=== PATIENT | female | born 1960 | race Caucasian/White ===

== ENCOUNTER → 2017-10-29 11:02 | Outpatient (CLI) | payer OTHER, SELFPAY ==
--- NOTE | 2017-10-29 | DI.MG.S_ITS ---
BILATERAL DIGITAL SCREENING MAMMOGRAM 3D/2D WITH CAD: 10/29/2017 CLINICAL: Routine screening. Comparison is made to exams dated: 11/13/2016 mammogram, 08/30/2015 mammogram, and 08/14/2014 mammogram - [facility]. The tissue of both breasts is extremely dense, which lowers the sensitivity of mammography. Current study was also evaluated with a Computer Aided Detection (CAD) system. No significant masses, calcifications, or other findings are seen in either breast. There has been no significant interval change. IMPRESSION: NEGATIVE There is no mammographic evidence of malignancy. A 1 year screening mammogram is recommended. This exam was interpreted at Station ID: [id number]. NOTE: For mammograms, a report in lay terms will be sent to the patient. Approximately 15% of breast malignancies will not be visualized mammographically. In the management of a palpable breast mass, a negative mammogram must not discourage biopsy of a clinically suspicious lesion. Electronically Signed By: Rosa [email or web address]:10/29/2017 11:48:19 copy to: ASHANTI MCFARLANE letter sent: Normal Exam ACR BI-RADS Category 1: Negative 3341F
== END ==
PROVIDERS: PCP Family Medicine; Visit Provider Nurse Practitioner Family
DX: Z12.31 Encounter for screening mammogram for malignant neoplasm of breast (principal)
CPT/HCPCS: 77063; 77067

== ENCOUNTER → 2019-04-28 11:00 | Outpatient (CLI) | payer OTHER, SELFPAY ==
--- NOTE | 2019-04-28 11:04 | DI.MG.S_ITS ---
BILATERAL DIGITAL SCREENING MAMMOGRAM 3D/2D WITH CAD: 04/28/2019 CLINICAL: Routine screening. Comparison is made to exams dated: 10/29/2017 mammogram, 11/13/2016 mammogram, and 08/30/2015 mammogram - [facility]. The tissue of both breasts is extremely dense, which lowers the sensitivity of mammography. Current study was also evaluated with a Computer Aided Detection (CAD) system. There are benign calcifications in both breasts. No significant masses, calcifications, or other findings are seen in either breast. There has been no significant interval change. IMPRESSION: There is no mammographic evidence of malignancy. A 1 year screening mammogram is recommended. This exam was interpreted at Station ID: [id number]. NOTE: For mammograms, a report in lay terms will be sent to the patient. Approximately 15% of breast malignancies will not be visualized mammographically. In the management of a palpable breast mass, a negative mammogram must not discourage biopsy of a clinically suspicious lesion. Electronically Signed By: Jack oakes/[email or web address]:04/28/2019 14:17:35 copy to: ASHANTI MCFARLANE letter sent: Normal Exam ACR BI-RADS Category 2: Benign Finding(s) 3342F
== END ==
PROVIDERS: PCP Nurse Practitioner Family; Referring Provider Family Medicine; Visit Provider Family Medicine
DX: Z12.31 Encounter for screening mammogram for malignant neoplasm of breast (principal)
CPT/HCPCS: 77063; 77067

== ENCOUNTER → 2020-04-12 12:15 | Outpatient (CLI) | payer OTHER, SELFPAY ==
--- NOTE | 2020-04-12 12:37 | DI.CT.S_ITS ---
PROCEDURE: CT LE RT WO CON INDICATIONS: Post-traumatic osteoarthritis, right ankle and foot TECHNIQUE: Noncontrast 1-1.5 mm axial sections acquired from above the tibiotalar joint to the bottom of the calcaneus, with coronal and sagittal reformats. COMPARISON: None. FINDINGS: Image quality: Excellent. Bones: Postsurgical changes related to presume 1st metatarsal osteotomy and screw fixation. Hardware appears grossly intact. Moderate to severe 1st MTP joint degeneration. Severe tibiotalar degenerative joint disease. There is diffuse hindfoot and midfoot degenerative sclerosis and spurring. Diffuse osteopenia. Diffuse interphalangeal joint degeneration. Soft tissues: The visualized tendons and muscles are unremarkable except for mild diffuse muscle atrophy. IMPRESSION: Diffuse degenerative changes as above and osteopenia. Severe tibiotalar joint degeneration with [id number] appearance, subchondral sclerosis and spurring. Dictated by: Yury Taylor M.D. on 04/12/2020 at 16:07 Approved by: Yury Taylor M.D. on 04/12/2020 at 16:14
== END ==
PROVIDERS: PCP Nurse Practitioner Family; Referring Provider Orthopaedic Surgery Foot and Ankle Surgery; Visit Provider Orthopaedic Surgery Foot and Ankle Surgery
DX: M19.171 Post-traumatic osteoarthritis, right ankle and foot (principal)
CPT/HCPCS: 73700

== ENCOUNTER 2020-05-22 09:04 | Emergency (ER) | payer OTHER, SELFPAY ==
[2020-05-22 09:05] VITALS: BP 144/93; PULSE 94; RESP 16; TEMP 37.1; O2SAT 100; BMI 20.1
--- NOTE | 2020-05-22 09:21 | ED_ITS ---
HPI - Extremity Problem General Chief complaint: Extremity Problem,Nontraumatic Stated complaint: right side hip pain down leg Time Seen by Provider: 05/22/20 09:07 Source: patient Mode of arrival: Ambulatory Limitations: no limitations History of Present Illness HPI Narrative: Patient is a 60-year-old female who presents with left hip pain ongoing for a number of weeks. She was found to have are right S she received injections for the arthritis in her left hip her last injection was on 05/12/2020 by Orthopedics. She says since then it really has gotten much worse. She was on a short course of prednisone which she says has not really helped she is taking meloxicam daily along with tramadol she says it is painful to walk. She denies any fever chills no weakness numbness or tingling. MD Complaint: extremity pain Onset (ago): week(s) Pain Consistency: constant Location: left Quality: aching and sharp Radiation: distal Relieving factors: nothing Related Data Home Medications Medication Instructions Recorded Confirmed pantoprazole 40 mg PO BID #0 06/27/16 Previous Rx's Medication Instructions Recorded ondansetron HCl [Zofran] 4 mg PO TID #15 tab 04/11/16 diclofenac sodium [Voltaren] 1 % TOPICAL TID #100 gm 06/27/16 tramadol 50 mg PO BID #120 tab 06/27/16 alprazolam 0.25 mg OR BID #10 tab 07/10/16 hydrocodone-acetaminophen 1 tab PO Q6H PRN #10 tab 05/22/20 Allergies Allergy/AdvReac Type Severity Reaction Status Date / Time No Known Drug Allergies Allergy Verified 05/22/20 09:10 Review of Systems Review of Systems Narrative: GENERAL: Denies chills, fatigue, malaise, fever, sweats, travel HEENT: Denies sinus pain, ear pain, sore throat, difficulty swallowing, neck pain RESPIRATORY: Denies dyspnea, cough, wheezing, hemoptysis, sputum. CARDIOVASCULAR: Denies chest pain, palpitations, orthopnea, edema GASTROINTESTINAL: Denies nausea, vomiting, abdominal pain, diarrhea, constipation, melena. : Denies dysuria, frequency, incontinence, hematuria, urinary retention, flank pain. MUSCULOSKELETAL: See HPI SKIN: No rash, no erythema, no pruritus NEUROLOGIC: Denies weakness, dizziness, headache, numbness, change in speech, confusion PSYCHIATRIC: No concerning psychosocial issues. 12 point review of systems is negative except for those stated above and HPI Patient History Social History Smoking Status: Unknown if ever smoked Smoking Status: Unknown if ever smoked alcohol intake frequency: holidays/special occasions only Substance Use Type: does not use Exam Initial Vital Signs Initial Vital Signs: Vital Signs Temperature 98.7 F 05/22/20 09:05 Pulse Rate 94 H 05/22/20 09:05 Respiratory Rate 16 05/22/20 09:05 Blood Pressure 144/93 H 05/22/20 09:05 Pulse Oximetry 100 05/22/20 09:05 GENERAL: Alert 60-year-old female and in [no acute] distress. HEENT: Head atraumatic,EOMI, pupils reactive, CARDIOVASCULAR: Regular rate and rhythm without murmurs, rubs or gallops. RESPIRATORY: Breath sounds equal bilaterally, no wheezes rales or rhonchi. EXTREMITIES: Normal range of motion, no clubbing or edema. Neurovascularly intact Right hip minimal pain with internal external rotation there is no erythema mild tenderness. Pelvis is stable NEUROLOGICAL: Alert and oriented x4.Normal gait and speech. SKIN: Warm, dry, no laceration, no petechiae, no rashes or lesions. Course Orders Ordered: ED Orders 05/22/20 09:19 CT pelvis wo con Stat Discontinued Medications Morphine Sulfate (Morphine 4 Mg/Ml Inj) 4 mg IM NOW ONE Stop: 05/22/20 09:20 Last Admin: 05/22/20 09:25 Dose: 4 mg Documented by: SUZANNA Ondansetron HCl (Ondansetron 4 Mg Odt) 4 mg SL NOW ONE Stop: 05/22/20 09:20 Last Admin: 05/22/20 09:25 Dose: 4 mg Documented by: SUZANNA Vital Signs Vital signs: Vital Signs - 8 hr 05/22/20 09:05 05/22/20 10:10 Temperature 98.7 F Pulse Rate 94 H 84 Respiratory Rate 16 16 Blood Pressure 144/93 H 138/88 Pulse Oximetry 100 98 MDM - Extremity (Nontraumatic) Imaging Data CT scan - abdomen/pelvis: Radiologist's Impression: PROCEDURE: CT PEL WO CON INDICATIONS: right hip pain TECHNIQUE: Noncontrast 3 mm axial sections acquired through the bony pelvis, with coronal and sagittal reformatting. COMPARISON: None. FINDINGS: Image quality: Excellent. Bones: No acute fracture or traumatic malalignment. Minimal collar osteophytes of the acetabulum bilaterally. Degenerative changes seen in the partially visualized lower lumbar spine. Sacroiliac joints appear preserved. Soft tissues: Soft tissues about the right hip are unremarkable. There is moderate stool burden. There are calcified fibroids in the uterus. The bladder is distended. IMPRESSION: No acute bony abnormality of the right hip. Minimal bilateral hip degenerative changes. Dictated by: Michael Day M.D. on 05/22/2020 at 8:52 MDM Narrative Medical decision making narrative: At this time CT is negative. It is non erythematous she has no fever chills it has been ongoing for number of weeks. At this time I see no indication for further workup. Recommend outpatient follow-up with Orthopedics. Will change pain control medication to [place] instead of tramadol. Discharge Plan Departure Patient Disposition: Home Clinical Impression: Osteoarthritis of right hip Qualifiers: Osteoarthritis type: primary Qualified Code(s): M16.11 - Unilateral primary osteoarthritis, right hip Activity Restrictions/Additional Instructions: *You have been diagnosed with arthritis right hip *What to do: Increasing pain numbness tingling or weakness *Continue to take medications as directed [place] 1 tablet every 6 hours if needed for severe pain STOP TAKING TRAMADOL *Follow up with your primary care provider in 2-3 days *Return to ER if you should have weakness fever chills numbness tingling or any new, worsening or concerning symptoms Prescriptions: New hydrocodone-acetaminophen 5-325 mg tablet 1 tab PO Q6H PRN (Reason: pain) Qty: 10 RF: 0 No Action ondansetron HCl [Zofran] 4 MG tablet 4 mg PO TID Qty: 15 RF: 0 pantoprazole 40 MG tablet,delayed release (DR/EC) 40 mg PO BID Qty: 0 RF: 0 diclofenac sodium [Voltaren] 1 % gel 1 % Topical TID Qty: 100 RF: 1 tramadol 50 MG tablet 50 mg PO BID Qty: 120 RF: 3 alprazolam 0.25 MG tablet 0.25 mg OR BID Qty: 10 RF: 0 Referrals: Bisi Fox ARNP [Primary Care Provider] -
[2020-05-22] MEDS: ONDANSETRON 4 MG ODT SL (09:25)
[2020-05-22] MEDS: MORPHINE 4 MG/ML INJ IM (09:25)
[2020-05-22 10:10] VITALS: BP 138/88; PULSE 84; RESP 16; O2SAT 98
== END 2020-05-22 10:10 | disposition home or self-care (01) ==
PROVIDERS: Emergency Provider Emergency Medicine; PCP Nurse Practitioner Family
DX: M16.11 Unilateral primary osteoarthritis, right hip (principal)
CPT/HCPCS: 72192; 96372; 99284; J2270

== ENCOUNTER → 2020-06-07 12:49 | Outpatient (CLI) | payer OTHER, SELFPAY ==
--- NOTE | 2020-06-07 12:51 | DI.MRI.S_ITS ---
PROCEDURE: MR LUMBAR SPINE WO CON INDICATIONS: Spinal stenosis, lumbar region with neurogenic cla TECHNIQUE: Noncontrast sagittal T1 spin echo and T2 fast echo, sagittal STIR, axial T1 and T2 fast spin echo through the lumbar spine. In cases with scoliosis, additional coronal T2 fast spin echo may be performed. COMPARISON: [facility] [place], CR, XR LUMBAR SPINE WITH OLBIQUES PLUS FLEXION EXTENSION, 03/29/2020, 8:51. FINDINGS: Image quality: Excellent. Alignment and Curvature: 5 lumbar type vertebral bodies are present by plain film. Transitional element at S1. The numbering for the current report will be as denoted on the montage panel. Mild grade 1 anterolisthesis of L4 on L5 is present. Bone Marrow: Marrow is of normal overall signal. No acute vertebral body compression fractures. Mild reactive signal within the endplates adjacent to the L4-L5 and L5-S1 intervertebral discs. Spinal Cord: Conus medullaris terminates at the mid L2 level. Visualized cord demonstrates normal signal and size. Paraspinous Soft Tissues: No paravertebral masses. T12-L1: Normal appearance. L1-L2: Normal appearance. L2-L3: Mild disc height loss and desiccation. Mild diffuse disc bulge. Mild facet and ligamentum flavum hypertrophy. Mild canal stenosis. Mild bilateral foraminal stenosis. L3-L4: Moderate disc height loss and desiccation. Mild diffuse disc bulge. Mild facet and ligamentum flavum hypertrophy. Mild canal stenosis. Mild bilateral foraminal stenosis. L4-L5: Moderate disc height loss and desiccation. Mild diffuse disc bulge. Mild facet and ligamentum flavum hypertrophy. Mild canal stenosis. Mild bilateral foraminal stenosis. L5-S1: Moderate disc height loss and desiccation. Mild diffuse disc bulge with superimposed right far lateral broad-based protrusion. Mild facet and ligamentum flavum hypertrophy. Mild canal stenosis. Severe right and moderate left foraminal stenosis. Right L5 nerve root compression. IMPRESSION: 1. Multilevel degenerative disc and facet disease, as well as ligamentum flavum hypertrophy and epidural lipomatosis. 2. Mild multilevel canal stenosis. 3. Multilevel foraminal stenoses, worst at L5-S1 where there is associated intraforaminal nerve root compression. Recommend correlation with clinical symptoms to ascertain relevance of this finding. 4. Transitional anatomy at the lumbosacral junction as described above. Recommend correlation with the montage panel of the current examination, as well as plain films, for numbering purposes, prior to any lumbar spinal intervention. Dictated by: Munir Byrnes M.D. on 06/07/2020 at 16:55 Approved by: Munir Byrnes M.D. on 06/07/2020 at 16:58
== END ==
PROVIDERS: PCP Nurse Practitioner Family; Referring Provider Physical Medicine & Rehabilitation Pain Medicine; Visit Provider Physical Medicine & Rehabilitation Pain Medicine
DX: M48.062 Spinal stenosis, lumbar region with neurogenic claudication (principal); M48.07 Spinal stenosis, lumbosacral region; M51.36 Other intervertebral disc degeneration, lumbar region; M51.37 Other intervertebral disc degeneration, lumbosacral region; E88.2 Lipomatosis, not elsewhere classified
CPT/HCPCS: 72148

== ENCOUNTER → 2020-11-16 11:08 | Outpatient (CLI) | payer OTHER, SELFPAY ==
[2020-11-16 12:43] LABS: COVID19 -Nasal RAPID Negative (Negative)
== END ==
PROVIDERS: PCP Nurse Practitioner Family; Visit Provider Physician Assistant
DX: Z20.822 Contact with and (suspected) exposure to COVID-19 (principal)
CPT/HCPCS: 87635

== ENCOUNTER 2020-11-19 06:14 | Day surgery (SDC) | payer OTHER, SELFPAY ==
[2020-11-15 10:09] VITALS: BMI 20.5
[2020-11-19] VITALS (15 sets, daily range): BP systolic 96–119; BP diastolic 55–85; PULSE 57–98; RESP 12–20; TEMP 36.6–37.1; O2SAT 97–100; BMI 17.9
--- NOTE | 2020-11-19 | DI.RAD.S_ITS ---
PROCEDURE: XR ANKLE RT MIN 3V INDICATIONS: RT ANKLE SURGERY TECHNIQUE: 3 views of the ankle were acquired. COMPARISON: None. FINDINGS: Bones: Intraoperative images demonstrate postsurgical changes compatible with right tibiotalar arthroplasty. Orthopedic hardware in expected position. IMPRESSION: Expected postsurgical change for right tibiotalar joint arthroplasty. Dictated by: Sabine Laurent MD, PhD on 11/19/2020 at 15:05 Approved by: Sabine Laurent MD, PhD on 11/19/2020 at 15:06
[2020-11-19] MEDS: LACTATED RINGERS 1,000 ML 42 ML IV ×2 (07:23→09:19)
[2020-11-19] MEDS: GABAPENTIN 300 MG CAPSULE PO ×3 (07:25→20:54)
[2020-11-19] MEDS: ACETAMINOPHEN 325 MG TABLET 975 MG PO ×3 (07:25→20:54)
[2020-11-19] MEDS: SCOPOLAMINE 1 PATCH TOP (07:27)
[2020-11-19] MEDS: VANCOMYCIN 1,000 MG/200 ML PIGGYBACK 200 MG IV (07:27)
--- NOTE | 2020-11-19 07:28 | PM.PREOP ---
Pre-operative Note COVID-19 COVID-19 status: Negative Result date/Date tested (Pos, Neg/Pending): 11/16/20 Interval Note History & Physical reviewed/Exam performed by Physician: Yes Changes to H&P: No
[2020-11-19] MEDS: CEFAZOLIN 1 GM VIAL 2 GM IV ×2 (08:07→15:08)
--- NOTE | 2020-11-19 08:20 | PM.PROC.1 ---
Procedures Date/Time Date of procedure: 11/19/20 Time of procedure: 07:51 Nerve Block Time out performed: Yes Local anesthetic used: bupivacaine 0.25% Location of anesthetic used: RIGHT Amount of anesthesia used (mL): 15 Nerve blocks: femoral (adductor canal) Procedure successful: Yes Patient tolerated procedure: well and no complications Complications: none Additional comments: Adductor canal nerve block performed for post-op pain control at surgeon request. Patient was positioned with IV, O2, monitors and rescue meds available. Prepped and timeout performed. Target identified with continuous ultrasound guidance. 15mL of bupivicaine 0.25% was injected perineurally with intermittent aspiration and injection. No blood, no paresthesias, no acute complications. Ultrasound pic attained.
--- NOTE | 2020-11-19 08:22 | PM.PROC.1 ---
Procedures Date/Time Date of procedure: 11/19/20 Time of procedure: 07:55 Nerve Block Time out performed: Yes Local anesthetic used: bupivacaine 0.25% Location of anesthetic used: RIGHT Amount of anesthesia used (mL): 15 Nerve blocks: peroneal (popliteal) Procedure successful: Yes Patient tolerated procedure: well and no complications Complications: none Additional comments: Popliteal nerve block performed for post-op pain control at surgeon request. Patient was positioned with IV, O2, monitors and rescue meds available. Prepped and timeout performed. Target identified with continuous ultrasound guidance. 15mL of bupivicaine 0.25% was injected perineurally with intermittent aspiration and injection. No blood, no paresthesias, no acute complications. Ultrasound pic attained.
--- NOTE | 2020-11-19 08:25 | SUR.PREOP ---
Block start time [0747] . time out -0747; Monitoring initiated and maintained throughout procedure. Oxygen and medications given per anesthesiologist. Patient remained stable throughout procedure, no adverse reactions noted. Block end time [0755].
--- NOTE | 2020-11-19 08:29 | SUR.PREOP ---
Block start time [] . Monitoring initiated and maintained throughout procedure. Oxygen and medications given per anesthesiologist instructions. Patient remained stable throughout procedure, no adverse reactions noted. Block end time [].
--- NOTE | 2020-11-19 08:46 | SUR.OPER ---
Supine on padded OR bed, head on pillow, arms secured on padded arm boards at <90 degrees abduction, gel pads placed under bilateral arms, legs uncrossed, padded bed extension placed for left leg, slightly abducted, gel pad under left leg, safety belt at lower torso, blanket bump under right hip, tape over blanket over left lower leg, right leg in control of the surgeon. Gel pad placed between patient left posterior thigh and urinary catheter tubing. Difficult urinary catheter placement, slightly reddened near urethra/vagina area.
[2020-11-19] MEDS: EPINEPHrine 1 MG/ML 0.15 MG SUBCUT (09:07)
[2020-11-19] MEDS: BUPIVACAINE 0.25% (PF) VIAL 30 ML INJ (09:09)
--- NOTE | 2020-11-19 13:51 | P.OP_ITS ---
Operative Date/Time/Diagnoses Date of procedure: 11/19/20 Time of procedure: 08:45 Pre-op diagnosis: Posttraumatic arthritis right ankle M19.171 Post-op diagnosis: same Procedure & Clinicians Procedure: Total ankle arthroplasty, right CPT code 01461 Same procedure as scheduled: Yes Indications: The patient is a 60-year-old female with a history of right posttraumatic ankle arthritis. She has a remote history of a tibia shaft fracture treated non operatively. She does have some mild degenerative changes in her subtalar joint and midfoot but has end-stage posttraumatic ankle arthritis. She has failed conservative treatment with injections, bracing, anti-inflammatories and activity modifications. She has been indicated for a total ankle arthroplasty to preserve range of motion and function and a protect adjacent joints. The patient desires a joint sparing procedure the risks and benefits and alternatives to procedure were discussed with the patient in detail including but not limited to infection, nonunion, malunion, intraoperative fracture, wound healing problems, hardware irritation, need for additional procedures, persistent pain, DVT, PE, cardiac and pulmonary complications including stroke, paralysis, and risk of amputation. The possible need for additional operative procedures to balance the ankle were also discussed. The patient understands and agrees with the plan. We discussed the patient will be nonweightbearing minimum of 2 weeks and up to 6 weeks postoperatively. Sutures will remain in place 2-4 weeks. Formal physical therapy will start sometime around 6 weeks postoperatively we discussed at no time during physical therapy will the patient be allowed to do any single leg balance on a balance board or unstable surfaces the due to the increase for stress fracture and implant failure. Patient has no history of DVT or pulmonary embolism and will utilize aspirin 325 mg starting postop day 1 for DVT prophylaxis. Will having some ice and a Ancef as a preoperative antibiotic. She will use antibiotic prophylaxis for dental procedures for at least 2 years postoperatively. The patient understands and agrees with the plan and Informed consent was signed in the office. During the Operation, the services of a physician surgical supply assistant were medically indicated and necessary to provide the exposure of the operative site for the surgical procedure and to maintain the limb in a proper position to carry out the operation safely and efficiently. Without a qualified trust operations assistant being present this would extended the operative procedure and made the procedure technically more difficult to perform. Surgeon: Aileen Campbell Awake Overnight Monitor: Radha Cage Anesthesia Type: General, Peripheral nerve block and Local (10 cc 0.25% Marcaine subcutaneous) Operative Notes Findings: Right tibiotalar arthritis with eburnated bone and significant anterior distal tibial and talar osteophytes. There was a known medial anterior distal tibial cystic lesion just above the level of the physeal scar -this was addressed with the planned stemmed implant-noted intraop with the use of reaming in the distal tibia through this section remainder of the bone quality was good. There was no residual Ligament laxity. After implant placement the range of motion was checked and it was acceptable. Therefore it was determined no need for Achilles lengthening. Closure Type: primary Specimen(s): none sent Prosthetic devices, grafts, tissues, transplants, or devices: Herr inbone tibial implant: Tibial top stem 12 mm, tibial mid stem 14 mm, tibial mid stem 14 mm, tibial base stem 16 mm Herr Inbone tibial tray right size 2 long Herr infinity adaptis talar dome flat cut size 1 Inbone poly insert: Ultra high molecular weight polyethylene size 1+, height 6 mm Estimated Blood Loss (mL): 30 Blood products transfused: none Tourniquet time (min): 139 Procedure in detail: The patient was seen in the preoperative area the site of surgery was marked informed consent confirmed. Final questions were answered. The patient was also seen by the anesthesiologist and a peripheral nerve block was placed for postoperative pain control. The patient was brought back to the operating room by the anesthesia team positioned supine on the operative table. All bony prominences were well padded. A well-padded thigh tourniquet was placed. The ipsilateral thigh bump was placed. An extra arm table was placed on the contralateral side to allow abduction of the contralateral lower extremity to provide room for the jig. Additional several intervals at the end of the bed were saved for room for the frame jig. General anesthesia was administered. A Ramos catheter was placed for the duration of the procedure. This was removed at the end of the procedure. The right lower extremities prepped and draped in the standard sterile fashion with a prescub then standard prep. The right lower extremity was then draped in the standard sterile fashion. Formal time-out procedure was performed confirming the patient's side and site of surgery administration of appropriate preoperative antibiotics which in this case were vancomycin and 2 g of Ancef. All were in agreement. Implants were in the room and available. Attention was then turned to the right lower extremity an Esmarch bandage was used for exsanguination the tourniquet was elevated to 250 mmHg and stayed there for 139 minutes. This was then taken down for 20 minutes summary elevated for a brief of 15 minute were. A to finish the procedure. Standard anterior approach to the ankle was drawn out on the leg approximately 12 cm incision was taken about 1 cm lateral to the tibial crest and extended longitudinally bisecting the tibiotalar joint extending to the talonavicular joint. This was taken down through the skin and subcutaneous tissues care was taken to isolate and protect the superficial peroneal nerve branch. Next the extensor retinaculum was opened and tagged with an 0 Vicryl for later repair. The EHL tendon sheath was opened and the EHL and neurovascular bundle were retracted laterally and the tibialis anterior was capped into its sheath and retracted medially. This brought us down directly on the anterior tibia. Dissection was taken all the way to the talonavicular joint to expose the talus. The capsule was divided and retracted. The joint demonstrated end-stage tibiotalar arthritis with large anterior distal tibial spurs and a medial large talar spur. The Bovie cautery and elevators were used to remove the periosteum along the anterior tibia and expose the joint. Gelpi and Weitlaner retractors were used to protect the EHL and neurovascular bundle. The talus was mobilized. There no significant joint contractures. There was some asymmetric wear with minimal talar tilt narrowing on the lateral side and this was corrected by placing a small osteotome at the lateral aspect of the talar dome. This was kept in this position to guide our drilling. Leg was then placed into the inbone frame: In the standard adjustments made 1st confirming that the heel was flat down to the foot plane to the ankle was at 90? the heel cups were then secured the AP guide was placed in the slot in the C-arm brought in once alignment of the guide edgar was obtained the ankle was rotated into a mortise view and then the heel was pinned in place and the forefoot holders were secured at this point the toes were secured with Coban and the calf was secured with Coban. C-arm was taken to a lateral position and the medial lateral positioners were adjusted and the calf height and Achilles rest adjusted as needed for appropriate alignment. Then we returned to the AP view. Once appropriate alignment was obtained the trocar and cannula for the intramedullary drilling was placed in to the foot and a lizzeth placed on the bottom of the foot for this. Bottom of the foot incision was made and then blunt dissection carried down to bone. The trocar was then replaced and the 6 mm drill was placed up against the calcaneus. Under fluoroscopic guidance great care was taken with a Manning drill technique through the calcaneus and talus and then into the tibia. Was noted that there was some medial skive on the drilling this was corrected during our reaming using the U rotation adjustments. Drill was advanced about 7 cm into the tibia then attention was turned to sizing with the cutting guides cutting block was placed in place trialing a 3 this was obviously too large and was exchanged for a 2 which had a good fit. This was adjusted using the dials distal proximal and medial lateral to aligned at the joint line and to make sure that we were not cutting into the fibula and taking too much medial malleolus. All the knobs were tightened. We went into the lateral position to check the talar cut with the saw blade this was appropriate. The guide block was pinned bicortically. The gutter pins were placed. The anti rotation block was placed in. The 6 mm peg drill was then backed out into the talus. And the tibial notch was completed bicortically the anti rotation notch was removed and then the saw cuts were made at the tibia and talus. Cut ting block was then removed and the distal tibia resection was removed followed by the talar resection. Care was taken removing the distal tibia resection piece to only pull anterior to posterior to avoid any pressure on the malleoli. At this point reaming was completed we did use adjustment of the U bracket for a center center reaming. We started with a 12 mm Reamer then irrigated and then reamed 14 just distally for a 2 mm Press-Fit and selected a top stem of 12 2 mid stems of 14 and a base stem of 16 for this patient. This was felt to appropriately span her area of anterior distal tibia cyst and have a good fit for her bone quality. Next the Reamer was removed and the wound was irrigated. The tibial tray size was measured and a 2 long was selected. Then the tibial stems were opened and the tibial stem was implanted in the standard fashion. This was confirmed appropriate alignment and bony contact on AP and lateral imaging. At this point the foot was taken out of the foot dinh. Gutters were checked and were clear. Talar dome trial was placed 2 was trialed this was overhanging so a 1 was selected. One had a good fit without overhang this was selected and then pinned in place. The adaptis talar implant guide was then pinned in place and the 3 pegs drilled. The guide was then removed. The bone was irrigated. Left over bone from the tibial resection was rongeur and a small pleases and then packed into the intramedullary defect. The talar implant was implanted in the standard fashion. Good bony contact was noted on AP and lateral views. A trial poly 6 mm was placed. Radiographic and clinical alignment demonstrated no evidence of gutter impingement. Range of motion was checked clinically and fluoroscopically on AP and lateral views in dorsiflexion plantar flexion without appropriate range of motion and no Achilles tendon lengthening was indicated. Next day final poly 6 mm was selected this is a 1+. This was placed in the standard fashion. Final fluoroscopic x-rays were obtained demonstrating appropriate range of motion in implant placement and alignment. The tourniquet was released the wound was irrigated. Hemostasis was achieved. The wound was closed in layers with 0 Vicryl in the deep capsule. 2-0 PDS was used to close the retinaculum providing an excellent tight closure. 4-0 Monocryl was placed subcutaneous followed by 3-0 nylon. I did put some additional Dermabond on for a complete watertight seal. 3-0 nylon was used to close the foot incision. 10 cc of 0.25% Marcaine was used as a local anesthetic after the incision was closed. Well-padded dressing was placed with Xeroform, 4 x 4 gauze, Webril, bulky Nova cotton, posterior and U splint was applied. Drapes removed the patient was woken from anesthesia and taken to PACU in good condition. All counts were correct. There no immediate complications from this procedure. Complications: none Post-operative Condition: stable Disposition: PACU Plan for aftercare: Nonweightbearing right lower extremity. Strict elevation above the heart level for the 1st 2 weeks after surgery. Patient will be nonweightbearing until follow-up. Sutures will remain in place minimal of 2 weeks. Will start aspirin 325 mg daily for for 6 weeks for DVT prophylaxis starting on postop day 1. Will use SCDs while in the hospital. Will get 2 doses of antibiotics postoperatively while in the hospital. Plan discharge home tomorrow.
[2020-11-19] MEDS: KETOROLAC 30 MG/ML VIAL 15 MG IV ×2 (13:56→19:02)
[2020-11-19] MEDS: LACTATED RINGERS 1,000 ML 84 ML IV (13:59)
--- NOTE | 2020-11-19 15:05 | PT-IP ANOTE ---
Physical therapy order received and chart reviewed. Spoke to her nurse and pt is not ready to participate in mobility yet today. Will continue to follow and start PT when pt ready to increase her activity level.
[2020-11-19] MEDS: OXYCODONE IR 5 MG TABLET PO (15:17)
[2020-11-19 16:15] LABS: Estimated Glomerular Filt Rate > 60.0 mL/min (>60)
[2020-11-19] MEDS: PANTOPRAZOLE DR 40 MG TABLET PO (20:54)
[2020-11-19] MEDS: DOCUSATE 100 MG CAPSULE PO (20:54)
[2020-11-20] VITALS: BP 102/64; PULSE 86; RESP 16; TEMP 36.3; O2SAT 100
[2020-11-20] MEDS: CEFAZOLIN 1 GM VIAL 2 GM IV (00:41)
[2020-11-20] MEDS: KETOROLAC 30 MG/ML VIAL 15 MG IV ×2 (01:19→07:16)
[2020-11-20] MEDS: LACTATED RINGERS 1,000 ML 84 ML IV (01:39)
[2020-11-20 04:00] VITALS: BP 119/50; PULSE 61; RESP 17; TEMP 36.9; O2SAT 100
[2020-11-20] MEDS: GABAPENTIN 300 MG CAPSULE PO (08:03)
[2020-11-20] MEDS: OXYCODONE IR 5 MG TABLET PO (08:03)
[2020-11-20] MEDS: PANTOPRAZOLE DR 40 MG TABLET PO (08:03)
[2020-11-20] MEDS: DOCUSATE 100 MG CAPSULE PO (08:03)
[2020-11-20] MEDS: ASPIRIN EC 325 MG TABLET PO (08:03)
[2020-11-20] MEDS: ACETAMINOPHEN 325 MG TABLET 975 MG PO (08:04)
[2020-11-20] MEDS: INFLUENZA VACCINE QIV 0.5 ML SYRINGE IM (08:22)
--- NOTE | 2020-11-20 09:42 | PM.DS.1 ---
History of Present Illness History of Present Illness Date Patient Seen: 11/20/20 Time Patient Seen: 09:42 Chief complaint: Right ankle pain s/p right ankle arthroplasty Narrative: The patient is complaining of very mild pain this morning which she rates as 0 to 2/10. Denies nausea or vomiting. No numbness, tingling. No fevers, chills, night sweats. Overall she is feeling very well and would like to go home today. 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 There was a known medial anterior distal tibial cystic lesion just above the level of the physeal scar -this was addressed with the planned stemmed implant-noted intraop with the use of reaming in the distal tibia through this section remainder of the bone quality was good.? There was no residual Ligament laxity.? After implant placement the range of motion was checked and it was acceptable.? Therefore it was determined no need for Achilles lengthening. Closure Type: primary Specimen(s): none sent Prosthetic devices, grafts, tissues, transplants, or devices: Herr inbone tibial implant:? Tibial top stem 12 mm, tibial mid stem 14 mm, tibial mid stem 14 mm, tibial base stem 16 mm Herr Inbone tibial tray right size 2 long Herr infinity adaptis talar dome flat cut size 1 Inbone poly insert:? Ultra high molecular weight polyethylene size 1+, height 6 mm Estimated Blood Loss (mL): 30 Blood products transfused: none Tourniquet time (min): 139 Status at Discharge Cognitive/behavioral status at discharge: oriented Functional status at discharge: uses cane/walker Overall status at discharge: patient is progressing back to baseline Exam Vital Signs (past 8 hours): - 11/20/20 04:00 Temperature 98.4 F Pulse Rate 61 Respiratory Rate 17 Blood Pressure 119/50 L Pulse Oximetry 100 Oxygen Delivery Method Room Air Oxygen Flow Rate 0 Narrative Exam Narrative: Pleasant 60-year-old female, resting comfortably on the side of the bed. No acute distress. She is about to begin working with physical therapy. The patient is able to wiggle her toes. DP pulse is 2 +. Dressing is clean, dry, intact. Objective Labs Result Diagrams: 11/19/20 15:58 Labs: Laboratory Results - last 24 hr 11/19/20 15:58 Creatinine 0.54 Estimated GFR > 60.0 PFSH Medical History Ankle injury Arthritis Injury to back Injury, knee, leg, ankle, and foot Social History household members: spouse Smoking Status: Never smoker alcohol intake: current Discharge Assessment & Plan Assessment and Plan Assessment: Stable status post right total ankle arthroplasty Plan of Treatment: Please refer to detailed discharge summary -aspirin 325 mg daily x6 weeks for DVT prophylaxis -nonweightbearing right lower extremity -DC home today after cleared by PT Discharge Plan Discharge Plan Patient Disposition: Home Discharge orders & Medications Discharge Orders: Discharge (Order); Ordered 11/20/20 Ordered By: Radha Cage Prescriptions: New oxycodone 5 mg tablet 5 - 10 mg PO Q4H PRN (Reason: pain) Qty: 60 RF: 0 ondansetron 4 mg tablet,disintegrating 4 mg PO Q8H PRN (Reason: nausea and vomiting) Qty: 7 RF: 1 gabapentin 300 mg capsule 300 mg PO TID Qty: 9 RF: 0 ketorolac 10 mg tablet 10 mg PO TID 5 Days Qty: 15 RF: 0 Continued pantoprazole 40 MG tablet,delayed release (DR/EC) 40 mg PO BID Qty: 0 RF: 0 diclofenac sodium [Voltaren] 1 % gel 1 % Topical TID Qty: 100 RF: 1 Discontinued ondansetron HCl [Zofran] 4 MG tablet 4 mg PO TID Qty: 15 RF: 0 tramadol 50 MG tablet 50 mg PO BID Qty: 120 RF: 3 hydrocodone-acetaminophen 5-325 mg tablet 1 tab PO Q6H PRN (Reason: pain) Qty: 10 RF: 0 Follow up/Referrals: Aileen Campbell MD [Physician] - (10-14 days for postoperative visit) Bisi Fox ARNP [Primary Care Provider] - Diet/Activity/Treatments Diet: Diet as Tolerated Activity: NWB RLE Other treatments: At-Home Instructions - Dr. Campbell Surgery: Total ankle replacement, right Cast/Splint/Dressing Care Instructions 1) Keep cast/dressing clean and dry. 2) May bathe - but cast/dressing must remain dry. 3) Should the cast become wet, you need to come into emergency department or call your physician's clinic immediately for cast removal and replacement. Moisture can cause skin breakdown and lead to infection if left untreated. 4) Do not stick any sharp object down the cast to itch, as this can cause scrapes/cuts/punctures which can lead to infection. 6) Observe for increasing pain in the extremity with the cast, finger/toe-tips turning blue/purple, or numbness and tingling in your toes/fingers. Should any of these symptoms arise, you need to be seen immediately for evaluation of swelling and increasing compartment pressures within your affected extremity. 7) Keep your affected extremity elevated - Toes Above your Nose? - This is amato in the first two weeks after surgery to minimize swelling. 8) You may ice your extremity, being careful to prevent melting ice from saturating into the splint/cast. Activity No heavy lifting greater than 10 pounds. [address] while on narcotic pain medication. Do not get your dressing/cast/splint wet! You must remain non-weight bearing on your operative extremity. Use crutches or a walker for ambulation. No driving until you are otherwise instructed by your physician. This will be addressed at your first follow-up appointment. Discharge Pain Medications You will be given a prescription for pain medication. You should start taking this the same day after your surgery. Wean off as tolerated. Do not wait to take the pain medication until the pain is severe, as it will be difficult to catch up once this occurs. The pain medication usually reaches its full effect ~1 hour after ingesting. If you have been sent home on Colace, this medication should be taken until you are off all narcotic (i.e. Vicodin, Percocet, Oxycodone, etc) pain medications, to prevent constipation. You may also obtain this or another stool softener over the counter to prevent or alleviate constipation. Percocet or Vicodin have Tylenol in their ingredient lists. You must be careful not to exceed 3,000mg (3 grams) of Tylenol, from all sources, within a single 24-hr period. This means that you may not take more than 10 pills within a 24-hr period. Do NOT take Regular or Extra Strength Tylenol when taking your Percocet or Vicodin medications. -IF you have been given a Toradol/ketorolac prescription, this is a very strong anti-inflammatory. Do not take iema-fug-gqfcbws anti-inflammatories (ibuprofen, Aleve, Advil, Motrin, meloxicam) while taking the Toradol/ketorolac. Once you are finished with this prescription, then you can resume mhyg-kii-jvlaqxa anti-inflammatories. You can still take your narcotic pain medication and Tylenol while taking the Toradol/ketorolac. -Some common side effects of the narcotic pain medications (Percocet, Oxycodone, Vicodin, etc.) include nausea and itching. Benadryl is a great over the counter medication that helps calm your stomach, decreases your anxiety levels, and minimizes the itching. You can easily purchase this at your local pharmacy as an icyt-pvu-xxtgjak medication. Please abide by the instructions as printed on the bottle. If your nausea persists, make sure to take small amounts of crackers or other sql tech foods. Follow-Up/Emergency Contacts Please call for an appointment in either [place] or [place], if one has not been scheduled. Follow up 2 weeks after surgery. [phone] Contact the office if you have any of the following: ? Painful swelling or numbness ? Unrelenting pain ? Fever (over 101?- it is normal to have a low grade fever for the first day or two following surgery) or chills ? Redness around the incisions ? Color changes ? Continuous bleeding or drainage from the incision (a small amount is expected) ? Excessive nausea or vomiting ? Difficulty breathing If you have an emergency that requires immediate attention, proceed to the nearest emergency room. Blood Clot Prophylaxis You will need to complete a total 6-week (42 days) course of Aspirin (325 mg daily) after surgery, to minimize the risk of blood clots following surgery. You may alternatively purchase or use ozdu-mlw-wfbkika generic equivalent Aspirin. If you already have ?baby? Aspirin (81mg) at home, you can take 4 ?baby? Aspirin to total 324mg for the equivalent dose. Pain Medications: It is the policy of [facility] that narcotic medications will only be refilled during office hours. Additionally, due to the alarming rate of narcotic pain medication abuse/dependence, it has become necessary for physician practices to closely manage patient use of prescription narcotic pain relievers, such as Vicodin ([place]), Percocet, and Oxycodone products. Narcotic pain management in the postoperative period may not exceed 6 weeks. If narcotic pain management is required beyond 90 days, then a referral to a Chronic Pain Specialist will be made. If a request for a medication prescription has been made, the physician must review your chart prior to authorizing the request. Please be patient with office staff. If you call during patient hours, your call may not be returned until the end of the day. For medication protocol will be: 1) peripheral nerve block. This will help alleviate pain for the 1st 24 hours after surgery. 2) non medication intervention: Elevate the leg above the heart level 95% of the time for the 1st 2-3 days predominantly for the 1st 2 weeks after surgery. Ice consistently for the 1st 2-[address] ice behind the knee for 20 minutes/hour or over the splint around the ankle as much as tolerated. 3) non opiate medications: take vkbc-mvr-darzjyt Tylenol or acetaminophen 650 mg every 6 hours. Take gabapentin (Neurontin) 300 mg every 8 hours for the 1st 3 days. Take ketorolac (Toradol) 10 mg 3 times a day for 5 days--this is a very strong anti-inflammatories so do not restart your meloxicam until you finished your ketorolac prescription. But once the ketorolac prescription is finished then may restart her meloxicam at her normal dosing. (do not take any other ibuprofen Aleve, Motrin, anti-inflammatory while taking the Toradol/ketorolac. May take Zofran (ondansetron) as needed for nausea. Take aspirin 325 mg daily this is for blood clot prophylaxis. 4) opioid medications: Use as little as needed foot surgeries painful in plan on using them regularly for the least the 1st few days around surgery. He will have a prescription for oxycodone 5 mg take 1-2 tablets every 4 hours on the prescription but you may take 1-3 tablets up to every 3 hours if the pain is severe. This would be the equivalent of taking 15 mg every 3 hours as a maximum dose. Once you are more comfortable decrease the amount and space out the time longer between doses. Do not mix your tramadol and Vicodin medications while taking the oxycodone.-hold these medications while taking oxycodone. If you need a refill of pain medication you may call the office. Most patients do not require refill. Goal would be to renew back down to your baseline and then lower the requirements for pain medication after the 1st few weeks from surgery. You will need dental prophylaxis for least 2 years after joint replacement. Do not schedule any elective dental procedures for at least 3 months following a joint replacement. For least 2 years after the joint replacement you will require prophylaxis for dental or endoscopy procedures -such as GI or procedures which will be 2 g of amoxicillin by mouth 1 hour prior to the procedure. Dr. Aileen Campbell [address] [email or web address] Skin/Wound[facility]Dressing [facility] Report to your healthcare provider any signs of infection, such as:: chills, fever, night sweats, increased pain, unusual drainage and unusual redness Visit Report/Discharge Packet Stand Alone Forms: Surgery Discharge Discharge Data Primary Care Provider: Bisi Fox Attending Provider: Aileen Campbell
[2020-11-20 09:58] VITALS: BP 93/61; PULSE 92; RESP 16; TEMP 37.3; O2SAT 99
--- NOTE | 2020-11-20 10:21 | PT.IIE ---
Current Diagnoses Post-traumatic osteoarthritis, right ankle and foot (11/19/20) Surgery Performed Operation Date: 11/19/20 07:45 Actual Procedures p Total Ankle Arthroplasty(Right) - Aileen Campbell MD Medical History (Last Reviewed 11/20/20 @ 09:45 by Radha Cage PA-C) Ankle injury Arthritis Injury to back Injury, knee, leg, ankle, and foot Physical Therapy Inpatient Evaluation/Re-Eval M1 PT/OT-IP Prior Functional Status Start: 11/20/20 12:30 Freq: NEEDED Status: Active Protocol: Document 11/20/20 10:21 DLM (Rec: 11/20/20 12:55 DLM [id number]) Medical Review Prior Functional Status Medical History Reviewed Yes Diet/Fluid Consistency Regular Communication WNL Mobility and Gait Independent without device Activities of Daily Living and IADL's Independent Prior Functional Level (Other details) she got a knee scooter and an I-walker to use during her recovery (purchased them) Social History Household Members spouse Living Arrangements House Number of Floors (Floors) Two Floors Number of Stairs To Enter/Railing? 2 steps to enter, no rail. She can stay on main floor of house with BR Home Environment Standard Height Toilet,Walk in Shower,Tub/Shower Home Equipment Front Wheel Walker,Straight Cane Additional Social History Comment master bedroom is on second floor M2 PT-IP Current Condition Start: 11/20/20 12:30 Freq: NEEDED Status: Active Protocol: Document 11/20/20 10:21 DLM (Rec: 11/20/20 12:55 DL [id number]) Physical Therapy Current Condition Current Condition Evaluation Date 11/20/20 Treatment Diagnosis right ankle replacement, impaired gait Onset Date 11/18/20 Weight Bearing Status Weight Bearing Status Non-Weight Bearing M3 PT-IP Subjective Start: 11/20/20 12:30 Freq: NEEDED Status: Active Protocol: Document 11/20/20 10:21 DLM (Rec: 11/20/20 12:55 DLM [id number]) Subjective Physical Therapy Visit Type Type Initial Evaluation Visit Start Time 09:30 Visit Stop Time 10:21 Total Visit Minutes 51 Number of FROZEN [employer]OG[employer] Visits 0 Physical Therapy Visit Comments Patient Comments She feels she is prepared to manage NWB at home, she has experience using equipement after other leg injuries. She has help at home. Patient Goals go home Therapy Pain Assessment Pain When Pain Assessed During Mobility Pain Present Pain Present Pain Reported Location Right Foot Intensity 3 Scale Used Numeric (0 - 10) Description Aching,With Movement Pain Management Techniques Apply Cold,Elevation,Timing of Activity with Medications M4 PT-IP Mobility and Gait Start: 11/20/20 12:30 Freq: NEEDED Status: Active Protocol: Document 11/20/20 10:21 DLM (Rec: 11/20/20 12:55 DLM [id number]) PT-Bed Mobility Assessment Rolling Level of Assist Independent Supine to Sit Supine to Sit Independent Sit to Supine Sit to Supine Independent Scooting Scooting to Edge of Bed Independent PT-Transfer Assessment Sit to and From Stand Sit to and from Stand Independent Equipment Transfer Assistive Device Gait Belt,Front Wheeled Walker Transfers Transfer Destination Bed,Chair,Toilet Transfer Technique Stand Step Pivot Transfer Ability Level of Assist Independent,Use of Upper Extremities Comments Mobility Comments pt up to toilet to urinate, got up to recliner this visit but pt returned to bed to elevate ankle at the end of this visit Gait Assessment Gait Gait Assistance Required: Independent Distance (Feet) 60 Able to Maintain Weight Bearing Status Yes During Gait Assistive Devices Assistive Device Gait Belt,Front Wheeled Walker Gait Deviations General Gait Pattern Antalgic Factors Limiting Gait Function Factors Limiting Gait Function Decreased Activity Tolerance, Decreased Strength,Limited Range of Motion,Pain Comments Gait Comments she demonstrates safe ability to stay NWB right ankle Stair Climbing Assessment Evaluation Level of Assist On Stairs Minimal Assistance Devices Stair Climbing Assistive Devices Front Wheel Walker Technique/Endurance Stair Climbing Direction Ascend and Descend Stair Climbing Technique Step to Step Number of Steps Climbed 1 Query Text: Stair Climbing Set # Repetitions (reps) 2 Comments Stair Climbing Comments backwards step up to step, going down forward, pt will needs Spouse to support her FWW to be able to do the second step up to get into the house, demonstrated this technique to pt who verbalized understanding PT-Balance Assessment Sitting Balance and Reactions Static Sitting Balance Ability Normal Dynamic Sitting Balance Ability Normal Standing Balance and Reactions Static Standing Balance Ability Good Dynamic Standing Balance Ability Good Device Used FWW M5 PT-IP Objective Assessments Start: 11/20/20 12:30 Freq: NEEDED Status: Active Protocol: Document 11/20/20 10:21 DLM (Rec: 11/20/20 12:55 [facility] [id number]) Orientation Orientation/Cognition Level of Alertness Alert Orientation Name,Age,Birthday,Month,Date, Year,Day of Week,Place, Situation Language Function Ability No Deficits Noted Safety Awareness Understands Safety Issues Memory Description No Deficits Noted Gross Range of Motion Upper Extremity ROM Assessment Within Functional Limits Lower Extremity ROM Assessment Right Impaired Impairments right ankle splinted, no functional ROM, able to wiggle toes Strength Upper Extremity Strength Assessment Within Functional Limits Lower Extremity Strength Assessment Right Impaired Hip able to do straight leg raise Knee moving actively Ankle splinted Coordination Assessment Gross Coordination Gross Coordination WNL Sensation Assessment Sensation Gross Sensation Right LE Impaired Sensation Description Tingling Comments Sensation Comments she reports getting a little tingling in right foot during this visit, post-op Muscle Tone Muscle Tone WNL Yes M6 PT-IP Treatment Start: 11/20/20 12:30 Freq: NEEDED Status: Active Protocol: Document 11/20/20 10:21 DL (Rec: 11/20/20 12:55 [facility] [id number]) Physical Therapy Treatment Education Education Provided Precautions,Weight Bearing Status,Safety Equipment Issued Equipment Type and Company pt has a fWW for home use Other Treatments Other Treatment Performed educated pt in safe management of right ankle in coordination with her low back pain M7 PT-IP Assessment and Plan Start: 11/20/20 12:30 Freq: NEEDED Status: Active Protocol: Document 11/20/20 10:21 DL (Rec: 11/20/20 12:55 [facility] [id number]) PT Summary Assessment and Plan Potential Rehabilitation Potential Excellent Status of Condition at Evaluation Evolving Summary Impairments Pain,ROM,Strength,Balance,Bed Mobility,Transfers,Gait, Activity Tolerance Progress Towards Goals Safe For Discharge,Goals Met Assessment Summary Ayla is alert and resting in bed. She demonstrates a good understanding of her post-op restrictions. She is able to stay NWB right LE for gait with FWW. Education and training completed this visit. She appears safe to discharge home with her Spouse to help when medically cleared. Goals Bed Mobility Goal Independent Transfer Goal Independent,Front Wheeled Walker Gait Goal Independent,Front Wheel Walker Gait Distance 50 feet Other Goals up and down step with FWW and min assist, NWB right LE Days to Meet Goals 1 Frequency of Treatment Frequency Of Treatment Discharge Treatment Plan Physical Therapy Treatment Plan Bed Mobility Training,Transfer Training,Gait Training, Therapeutic Exercise,Balance Retraining,Post Op Education, Discharge Planning,Hot or Cold Pack Other Recommendations and Next Treatment completed training this visit Focus Recommendations To Nursing Amount of Assist Needed Standby Assistance Discharge Recommendations PT Discharge Recommendations Home with Assistance Equipment Needed for Home Before needs one crutch if she wants Discharge to go up to second floor of house Transportation Needs at Discharge Private Vehicle
--- NOTE | 2020-11-20 11:15 | PC.NURSE ---
Pt is dressed and ready for discharge home with Spouse. Has been given a ferry boarding pass to [place]. Spouse is at the bedside. Went over d/c instructions with Pt and spouse - discussed d/c meds, time of last dose, reviewed stroke education, reminded Pt to elevate her right leg above her heart and that she in non-weight bearing. Reminded Pt not to drive until cleared by Physician and to drink plenty of fluids to prevent constipation or dehydration. Pt informed that she must keep her cast/dsg dry and if it gets wet to get it changed at the ER or Physicians office. Pt denies further questions and was taken out via w/c by RN to POV with Spouse and all belongings.
--- NOTE | 2020-11-20 11:59 | CM.DANOTE ---
DCP: Case received, EMR reviewed. Was unable to meet with patient, she had been working with P.T, and she has already left. Completed DC assessment based upon information currently available in her chart. Patient is a 60 year old female who admitted yesterday morning to the care of the orthopedic team. PCP: Dr. Fox. Payer: confirmed: [facility]. Patient came to the hospital via private vehicle for a surgical procedure. She had right ankle arthroplasty. Patient had chronic ankle pain secondary to her having arthritis. Notes indicate that post op will be non-weightbearing with splint/boot. P.T. had been working with patient. Patient has already discharged home, but according to notes, she resides [place] [address] with her spouse, Robbin. It is noted that she was using no assisted devices prior to surgery. She is employed at [employer]. P: Patient has discharged home. She completed her session with P.T, and was deemed to be stable for home with support of spouse. Rosemary Doll RN/[employer]ountain Server Discharge Planning/Care Management CM Discharge Assessment Start: 11/20/20 11:57 Freq: Status: Active Protocol: Document 11/20/20 11:57 (Rec: 11/20/20 11:58 [id number]) Discharge Planning Assessment Assigned Clinical Nursing Instructor Rosemary Doll RN/[employer] Advance Directives? No History Provided By Patient,Medical Record Prior Living Arrangements House Household Members spouse Type of transporation used prior to Drives own vehicle admit Independent with ADL's Yes Is patient alert and oriented? Yes Caregiver for Another No Comment Patient will be going home with a specialized boot, uncertain is she will have crutches. Barriers to Discharge No Discharge Plan Home Transportation Arrangement Spouse Referrals Initiated None needed Whiteboard Updated in Patient Room with No name and ext. # of Clinical Nursing Instructor Comment Patient had already left before this counseling case manager could introduce self. Review Status In Process Next Review Type Continued Stay Review Pre-Anesthesia Assessment Start: 11/15/20 10:09 Freq: Status: Discharge Protocol: Document 11/15/20 10:09 CAB (Rec: 11/15/20 10:44 CAB [id number]) Pre-Anesthesia Assessment Patient Information Reviewed Via Chart Review Comment Labs/EKG/COVID screen not identified Primary Care Provider Sergio Brand Seen Specialist in Last 12 Months Yes Specialist Seen Emergency,Orthopedist Primary Language Mongolian Certified Respiratory Therapist Required No Height 5 ft 2 in Weight 112 lb Body Mass Index (BMI) 20.5 Barriers to Learning None Hx Anesthesia Reactions Prior surgical history not identified Anesthesia Review Requested No Intranet Specialist No alcohol intake current alcohol intake frequency holidays/special occasions only Smoking Status Unknown if ever smoked Substance Use Type does not use Pain Present Pain Reported Musculoskeletal Symptoms Arthralgias Patient is completely paralyzed or No completely immobile Mental Status Oriented to own ability Hx Sleep Apnea No Currently Taking a Beta Katelynn No Hx Chest Pain Yes: 2016, thought to be r/t esophageal spasm Hx Pacemaker/ICD No Pacemaker Rep Required? No dysphagia Yes: Occasional Urinary Catheter Present No Hx Urinary Self Catheterization No Diabetes No Patient No Lactating No Marital Status Lives With spouse Patient Discharge Plan Description Return Home Comment Lives [place] [address] Advance Directives? No
== END 2020-11-20 11:22 | disposition home or self-care (01) ==
LOC: OR 06:15 → AC 06:15
PROVIDERS: PCP Nurse Practitioner Family; Referring Provider Orthopaedic Surgery Foot and Ankle Surgery; Visit Provider Orthopaedic Surgery Foot and Ankle Surgery
PROC: (CPT 27702; principal; 2020-11-19 07:45)
DX: M19.171 Post-traumatic osteoarthritis, right ankle and foot (principal)
CPT/HCPCS: 27702; 36415; 64450; 73610; 76000; 82565; 90471; 90656; 94760; 97162; 97530; C1776; J0171; J0690; J1100; J1170; J1885; J2250; J2405; J2704; Q2038

== ENCOUNTER 2021-02-11 10:41 | Emergency (ER) | payer OTHER, SELFPAY ==
[2020-11-19 06:17] VITALS: BMI 17.9
[2021-02-11 10:51] VITALS: BP 164/77; PULSE 77; RESP 18; TEMP 36.1; O2SAT 100; BMI 17.7
[2021-02-11 10:54] VITALS: PULSE 72
--- NOTE | 2021-02-11 11:24 | DI.US.S_ITS ---
PROCEDURE: US PERIPH VENOUS LOW EXTREM LT INDICATIONS: rule out dvt TECHNIQUE: Real-time imaging, as well as color and pulse Doppler interrogation, were performed of the lower extremity deep veins from the inguinal ligament to the popliteal fossa. COMPARISON: None. FINDINGS: The common femoral, femoral and popliteal veins are normally compressible, and free of intraluminal thrombus. Color and pulse Doppler demonstrate normal phasic intraluminal flow. There is normal augmentation response to distal compression maneuver. IMPRESSION: No DVT in the left lower extremity. Dictated by: Randolph Navarro M.D. on 02/11/2021 at 10:56 Approved by: Randolph Navarro M.D. on 02/11/2021 at 10:56
[2021-02-11 12:03] VITALS: BP 130/82; PULSE 82; RESP 18; O2SAT 98
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
== END 2021-02-11 12:33 | disposition home or self-care (01) ==
PROVIDERS: Emergency Provider Emergency Medicine; PCP Nurse Practitioner Family
DX: M54.50 Low back pain, unspecified (principal); M54.10 Radiculopathy, site unspecified
CPT/HCPCS: 93971; 99283; 99284

== ENCOUNTER 2021-08-31 07:44 | Emergency (ER) | payer OTHER, SELFPAY ==
[2020-11-19 06:17] VITALS: BMI 17.9
[2021-08-31] VITALS (14 sets, daily range): BP systolic 107–135; BP diastolic 61–86; PULSE 46–66; RESP 8–19; TEMP 37.4; O2SAT 94–100; BMI 17.9
--- NOTE | 2021-08-31 07:50 | ED_ITS ---
HPI - Abdominal Pain General Chief Complaint: Nausea/Vomiting/Diarrhea Stated Complaint: diarrhea x30 days, abd pain Time Seen by Provider: 08/31/21 07:50 History of Present Illness HPI narrative: 61-year-old female nonsmoker with history of inflammatory bowel disease presents with her in the chief complaint of diarrhea for the past 30 days or so and severe abdominal pain this morning. [place]. Her pain had essentially resolved prior to her arrival. She denies any recent travel, change in diet or antibiotics prior to her episode of diarrhea. She states she is been seen and evaluated on multiple occasions by her primary care provider and has had stool samples which demonstrate no C diff or parasitic infection. She had been on Cipro which did not help. She had not yet had pain which is what changed her plan. She woke up and was on the toilet and developed severe generalized pain that seemed to have gone away after she took Toradol. She was able to successfully have a bowel movement but states that this did not obviously relieve her discomfort. She is been nauseated but denies any vomiting and has had no fever or chills. She does have an established relationship with a astroenterologist was not seen him in many years. She states that she thinks there is a referral in for her Related Data Home Medications Medication Instructions Recorded Confirmed pantoprazole 40 mg tablet,delayed 40 mg PO BID ##0 06/27/16 11/19/20 release Previous Rx's Medication Instructions Recorded diclofenac sodium 1 % topical gel 1 % topical TID ##100 06/27/16 (Voltaren) gabapentin 300 mg capsule 300 mg PO TID #9 caps 11/19/20 ondansetron 4 mg disintegrating 4 mg PO Q8H PRN nausea and 11/19/20 tablet vomiting #7 tabs oxycodone 5 mg tablet 5 - 10 mg PO Q4H PRN pain #60 tabs 11/19/20 gabapentin 300 mg capsule 300 mg PO TID #30 caps 02/11/21 dicyclomine 20 mg tablet 20 mg PO TID PRN IBS #20 tabs 08/31/21 Allergies Allergy/AdvReac Type Severity Reaction Status Date / Time hydroxychloroquine Allergy Severe Rash Verified 02/11/21 10:51 Review of Systems Review of Systems Narrative: GENERAL: Denies chills, fatigue, malaise, fever, sweats. HEENT: Denies sinus pain, ear pain, sore throat, difficulty swallowing, dizziness. RESPIRATORY: Denies dyspnea, cough, wheezing, hemoptysis, sputum. CARDIOVASCULAR: Denies chest pain, palpitations, orthopnea, edema, GASTROINTESTINAL: See HPI : Denies dysuria, frequency, incontinence, hematuria, urinary retention. MUSCULOSKELETAL: denies weakness, joint pain, or bony pain SKIN: Denies rash, skin lesions, or other NEUROLOGIC: Denies weakness, headache, numbness, change in speech, confusion, seizures, incoordination. PSYCHIATRIC: No concerning psychosocial issues. 12 point review of systems is negative except for those stated above Patient History Medical History Ankle injury Arthritis Injury to back Injury, knee, leg, ankle, and foot Social History household members: spouse Smoking Status: Never smoker alcohol intake: current Smoking Status: Never smoker alcohol intake frequency: holidays/special occasions only Substance Use Type: does not use Exam Narrative Exam Narrative: GENERAL: [61] year old patient appears stated age. Well-developed patient, in mild distress. HEAD: Atraumatic. Normocephalic. EYES: Pupils equal round and reactive. Extraocular motions intact. No scleral icterus. No injection or drainage. ENT: Dry mucous membranes Nose without bleeding, purulent drainage. Throat without erythema, tonsillar hypertrophy or exudate. Airway patent. NECK: Trachea midline. Non tender CARDIOVASCULAR: Regular rate and rhythm without murmurs, gallops, or rubs. RESPIRATORY: Clear to auscultation. Breath sounds equal bilaterally. No wheezes, rales, or rhonchi. GASTROINTESTINAL: Abdomen soft, non-tender, nondistended. EXTREMITIES: No edema or joint tenderness. BACK: Nontender without deformity or crepitance. No flank tenderness. NEURO: AOx3. SKIN: Poor skin turgor No rash or erythema of visible areas Initial Vital Signs Initial Vital Signs: Vital Signs Pulse Rate 61 08/31/21 07:49 Blood Pressure 135/71 08/31/21 07:49 Pulse Oximetry 94 08/31/21 07:49 Course Orders Ordered: ED Orders 08/31/21 11:05 COVID19 -Nasal RAPID/Pre-Proc Stat Discontinued Medications Sodium Chloride (Normal Saline 0.9%) 1,000 mls @ 1,000 mls/hr IV BOLUS ONE Stop: 08/31/21 08:52 Last Infusion: 08/31/21 11:02 Dose: 0 mls/hr Documented By: Admin: 08/31/21 09:26 Dose: 1,000 mls/hr Documented By: BRENNA(2) Consultations Consultation #1: Dr. Lopez (GI at [facility]) recommends dicyclomine/FODMAP diet, close follow up Vital Signs Vital signs: Vital Signs - 8 hr 08/31/21 10:00 08/31/21 10:00 08/31/21 10:30 Pulse Rate 47 L Respiratory Rate 18 Blood Pressure 131/72 126/72 Pulse Oximetry 100 08/31/21 10:30 08/31/21 11:00 08/31/21 11:00 Pulse Rate 48 L 47 L Respiratory Rate 12 19 Blood Pressure 114/86 Pulse Oximetry 100 99 08/31/21 11:30 08/31/21 11:37 08/31/21 11:37 Pulse Rate 46 L 48 L Respiratory Rate 8 L 19 Blood Pressure 116/73 Pulse Oximetry 100 100 08/31/21 12:20 08/31/21 12:20 Pulse Rate 51 L Respiratory Rate Blood Pressure 107/71 Pulse Oximetry 98 MDM - Abdominal Pain Lab Data Result diagrams: 08/31/21 08:14 08/31/21 08:14 Labs: Lab Results 08/31/21 08/31/21 08/31/21 Range/Units 08:14 08:14 11:05 WBC 6.4 (4.5-11.0) X10^3/uL RBC 3.76 L (4.0-5.2) X10^6/uL Hgb 11.9 L (12.0-16.0) g/dL Hct 35.3 L (36-46) % MCV 93.8 (80-100) fL MCH 31.7 (26-34) PG MCHC 33.8 (30-36) % RDW 12.9 (11.6-14.8) % Plt Count 433 H (150-400) X10^3/uL Neut % (Auto) 54.2 (50-75) % Lymph % (Auto) 28.8 (25-40) % [place] % (Auto) 12.4 (3-14) % Eos % (Auto) 3.4 (2-4) % Baso % (Auto) 1.2 (0-2) % Neut # (Auto) 3400 (5480-5625) /uL Lymph # (Auto) 1800 (6665-0766) /uL [place] # (Auto) 800 (0-900) /uL Eos # (Auto) 200 (0-450) /uL Baso # (Auto) 100 (0-100) /uL Sodium 139 (137-145) mmol/L Potassium 3.6 (3.4-5.1) mmol/L Chloride 104 (98-107) mmol/L Carbon Dioxide 30 (22-32) mmol/L BUN 11 (7-17) mg/dL Creatinine 0.62 (0.52-1.04) mg/dL Estimated GFR > 60 (>60) mL/min BUN/Creatinine Ratio 17.7 (6-22) Glucose 88 (80-110) mg/dL Calcium 8.4 (8.4-10.2) mg/dL Total Bilirubin 0.5 (0.2-1.3) mg/dL AST 24 (14-36) IU/L ALT 17 (<35) IU/L Alkaline Phosphatase 65 (38-126) U/L Total Protein 6.0 L (6.3-8.2) g/dL Albumin 3.3 L (3.5-5.0) g/dL Globulin 2.7 (1.7-4.1) g/dL Albumin/Globulin Ratio 1.2 (1.0-2.8) Lipase 128 (23-300) U/L SARS-CoV-2 (PCR) Negative (Negative) Point of care testing: Urine Dip Bedside Urine Glucose Negative Bedside Urine Bilirubin - Negative Bedside Urine Ketone - Negative Urine Specific [place] 1.010 Bedside Urine Occult Blood - Negative Bedside Urine pH 6.5 Bedside Urine Protein - Negative Bedside Urine Urobilinogen 0.2 Bedside Urine Nitrite - Negative Bedside Urine Leukocytes - Negative Esterase Imaging Data CT scan - abdomen/pelvis: Radiologist's Impression: Close Abdomen/Pelvis CT (Signed) Elisabeth Novoa - 08/31/[address] [address] [address] Scan Report Signed Patient: Ayla Clifton MR#: [id number] : 1960 Acct:[id number] Age/Sex: 61 / F Date of Service: 08/31/21 Loc: ED Accession Number: [id number] ?? Procedure: CT abdomen pelvis w con Ordering Provider: Emanuel Nunn D.O. PROCEDURE:? CT ABDOMEN PELVIS W CON ? INDICATIONS:? severe abdominal pain ? TECHNIQUE:? After the administration of oral and IV contrast, axial sections were acquired from the lung bases to the pubic symphysis.? Coronal and sagittal reformats were performed.? For radiation dose reduction, the following was used:? automated exposure control, a djustment of mA and/or kV according to patient size. ? COMPARISON:? [facility], CT, CT PEL WO CON, 05/22/2020, 9:34.? US, ABDOMEN COMPLETE, 05/29/2014, 8:45.? [facility], CT, ABDOMEN/PELVIS WITH CONTRAST, 06/04/2014, 16:19. ? FINDINGS:? Image quality:? Excellent.? ? Lung bases:? Clear lung bases.? Small hiatal hernia.? ? Heart:? No significant findings. ? ? ABDOMEN: Liver:? Normal size.? Mild hepatic steatosis.? ? Gallbladder:? Unremarkable.? ? Biliary ducts:? Unremarkable.? ? Pancreas:? Unremarkable.? ? Spleen:? Unremarkable.? ? Adrenal Glands:? Unremarkable.? ? Kidneys and Ureters:? Normal in size and enhancement.? Trace left renal pelviectasis versus parapelvic cysts, unchanged from the last exam.? ? ? Stomach and Bowel:? Stomach, small bowel loops, and colon are normal in calibe r.? There is mild diffuse colonic wall thickening in descending colon, sigmoid colon and rectum.? Moderate amount of stool in proximal colon.? Appendix is normal. Peritoneum:? Small intraperitoneal free fluid is present.? No free air.? ? Ventral Wall: ? No hernia.? Abdominal Nodes:? No retroperitoneal or mesenteric adenopathy by size criteria.? Vessels:? Aorta and inferior vena cava are normal in size.? ? PELVIS: Pelvic Organs:? Myomatous uterus with calcified uterine fibroids.? ? Bladder:? Unremarkable.? ? Pelvic Nodes: No enlarged lymph nodes.? Miscellaneous: No inguinal hernias are seen. ? ? ? Bones:? There is grade 1 anterolisthesis of L4 on L5.? Possible pars defect on the left.? Severe degenerative disc disease at L4-L5.? IMPRESSION:? ? 1. Mild diffuse colonic wall thickening involving the left colon and rectum consistent with colitis.? Differential diagnoses are infectious colitis versus inflammatory bowel disease.? Recommend clinical correlation. 2. A small amount of free fluid is present.? No organized fluid collections to suggest abscess. 3. Moderate amount of stool in proximal colon. 4. Myomatous uterus. 5. Trace left renal pelviectasis versus parapelvic cysts in left kidney.? ? ? The result was discussed with Dr. Nunn. ? Dictated by: Abigail Novoa M.D. on 08/31/2021 at 9:33 ? ? Approved by: Abigail Novoa M.D. on 08/31/2021 at 9:45 ? MDM Narrative Medical decision making narrative: Multiple etiologies for patient's symptoms considered include, but not limited to: [Bowel obstruction versus kidney stone versus diverticulitis versus other Patient's symptoms improved over duration of stay with above-stated therapies. History, physical exam, labs, imaging, and response to therapies have been reassuring. Findings and discharge diagnosis discussed with patient/family followed by verbalization of understanding Return precautions discussed with patient/family whom verbalize understanding. Pain has been well controlled and patient is tolerating oral hydration. Discharge Plan Departure Patient Disposition: Home Clinical Impression: Colitis Instructions: DI for Colitis Activity Restrictions/Additional Instructions: *You have been diagnosed with [abdominal pain likely due to colitis (irritable bowel syndrome). There is no evidence of any significant finding on the CT scan such as bowel obstruction, kidney stone or abscess.] * As we discussed I have spoken with Dr. Lopez (GI) and he recommends the prescription listed below as well as to FODMAP Diet (a quick internet search gi ves specifics, but see below for some basics). *What to do: *Please continue to take your regular medications as directed. [x ] New medication prescriptions sent to your pharmacy: [ [facility]] *Please follow up with your GI doctor within a week, call for an appointment. Let them know you were seen in the Emergency Department and that we ask that you be seen in follow up. We will electronically transmit a record of today's note *Please consider a clear liquid diet for the next 24-48 hours and then slowly advance to regular as tolerated. Also, try to avoid alcohol, nicotine, caffeine, spicy, acidic or fatty foods as this may worsen your symptoms *FODMAP Diet: you eliminate dairy, wheat based products, beans and lentils instead try eating eggs, meat, almond milk, rice/quinoa,oats *Return to Emergency Department if you should have any new, worsening or co ncerning symptoms, such as [fever greater than 101 F, shaking chills, worsening pain, persistent vomiting or other bothersome symptoms] Prescriptions: New dicyclomine 20 mg tablet 20 mg PO TID PRN (Reason: IBS) Qty: 20 0RF No Action pantoprazole 40 MG tablet,delayed release (DR/EC) 40 mg PO BID Qty: 0 diclofenac sodium [Voltaren] 1 % gel 1 % Topical TID Qty: 100 1RF oxycodone 5 mg tablet 5 - 10 mg PO Q4H PRN (Reason: pain) Qty: 60 0RF Rx Instructions: postop exempt ondansetron 4 mg tablet,disintegrating 4 mg PO Q8H PRN (Reason: nausea and vomiting) Qty: 7 1RF gabapentin 300 mg capsule 300 mg PO TID Qty: 9 0RF gabapentin 300 mg capsule 300 mg PO TID Qty: 30 0RF Referrals: Junior Lopez MD [Non-Staff] - Bisi Fox ARNP [Primary Care Provider] - Visit Report Forms: Patient Portal/API
[2021-08-31 08:27] LABS: Add Manual Diff / Slide Review NO; Basophils Absolute Auto 100 /uL (0-100); Basophils Percent Auto 1.2 % (0-2); Eosinophils Absolute Auto 200 /uL (0-450); Eosinophils Percent Auto 3.4 % (2-4); Hematocrit 35.3 % (36-46); Hemoglobin 11.9 g/dL (12.0-16.0); Lymphocytes Absolute Auto 1800 /uL (1100-4500); Lymphocytes Percent Auto 28.8 % (25-40); Mean Corpuscular HGB Conc 33.8 % (30-36); Mean Corpuscular Hemoglobin 31.7 PG (26-34); Mean Corpuscular Volume 93.8 fL (80-100); Monocytes Absolute Auto 800 /uL (0-900); Monocytes Percent Auto 12.4 % (3-14); Neutrophils Absolute Auto 3400 /uL (1500-7000); Neutrophils Percent Auto 54.2 % (50-75); Platelet Count 433 X10^3/uL (150-400); Red Blood Cell Count 3.76 X10^6/uL (4.0-5.2); Red Cell Distribution Width 12.9 % (11.6-14.8); White Blood Cell Count 6.4 X10^3/uL (4.5-11.0)
[2021-08-31 08:32] LABS: Alanine Aminotransferase 17 IU/L (<35); Albumin 3.3 g/dL (3.5-5.0); Albumin Globulin Ratio 1.2 (1.0-2.8); Alkaline Phosphatase 65 U/L (38-126); Aspartate Aminotransferase 24 IU/L (14-36); BUN Creatinine Ratio 17.7 (6-22); Bilirubin Total 0.5 mg/dL (0.2-1.3); Blood Urea Nitrogen 11 mg/dL (7-17); Calcium 8.4 mg/dL (8.4-10.2); Carbon Dioxide 30 mmol/L (22-32); Chloride 104 mmol/L (98-107); Estimated Glomerular Filt Rate > 60 mL/min (>60); Globulin 2.7 g/dL (1.7-4.1); Glucose 88 mg/dL (80-110); HEMOLYSIS < 15 (0-50); Lipase 128 U/L (23-300); Potassium 3.6 mmol/L (3.4-5.1); Sodium 139 mmol/L (137-145)
--- NOTE | 2021-08-31 08:52 | DI.CT.S_ITS ---
PROCEDURE: CT ABDOMEN PELVIS W CON INDICATIONS: severe abdominal pain TECHNIQUE: After the administration of oral and IV contrast, axial sections were acquired from the lung bases to the pubic symphysis. Coronal and sagittal reformats were performed. For radiation dose reduction, the following was used: automated exposure control, adjustment of mA and/or kV according to patient size. COMPARISON: [facility], CT, CT PEL WO CON, 05/22/2020, 9:34. US, ABDOMEN COMPLETE, 05/29/2014, 8:45. [facility], CT, ABDOMEN/PELVIS WITH CONTRAST, 06/04/2014, 16:19. FINDINGS: Image quality: Excellent. Lung bases: Clear lung bases. Small hiatal hernia. Heart: No significant findings. ABDOMEN: Liver: Normal size. Mild hepatic steatosis. Gallbladder: Unremarkable. Biliary ducts: Unremarkable. Pancreas: Unremarkable. Spleen: Unremarkable. Adrenal Glands: Unremarkable. Kidneys and Ureters: Normal in size and enhancement. Trace left renal pelviectasis versus parapelvic cysts, unchanged from the last exam. Stomach and Bowel: Stomach, small bowel loops, and colon are normal in caliber. There is mild diffuse colonic wall thickening in descending colon, sigmoid colon and rectum. Moderate amount of stool in proximal colon. Appendix is normal. Peritoneum: Small intraperitoneal free fluid is present. No free air. Ventral Wall: No hernia. Abdominal Nodes: No retroperitoneal or mesenteric adenopathy by size criteria. Vessels: Aorta and inferior vena cava are normal in size. PELVIS: Pelvic Organs: Myomatous uterus with calcified uterine fibroids. Bladder: Unremarkable. Pelvic Nodes: No enlarged lymph nodes. Miscellaneous: No inguinal hernias are seen. Bones: There is grade 1 anterolisthesis of L4 on L5. Possible pars defect on the left. Severe degenerative disc disease at L4-L5. IMPRESSION: 1. Mild diffuse colonic wall thickening involving the left colon and rectum consistent with colitis. Differential diagnoses are infectious colitis versus inflammatory bowel disease. Recommend clinical correlation. 2. A small amount of free fluid is present. No organized fluid collections to suggest abscess. 3. Moderate amount of stool in proximal colon. 4. Myomatous uterus. 5. Trace left renal pelviectasis versus parapelvic cysts in left kidney. The result was discussed with Dr. Nunn. Dictated by: Abigail Novoa M.D. on 08/31/2021 at 9:33 Approved by: Abigail Novoa M.D. on 08/31/2021 at 9:45
[2021-08-31] MEDS: SODIUM CHLORIDE 0.9% 1,000 ML 1000 ML IV (09:26)
[2021-08-31 12:11] LABS: COVID19 -Nasal RAPID Negative (Negative)
== END 2021-08-31 12:28 | disposition home or self-care (01) ==
PROVIDERS: Emergency Provider Emergency Medicine; PCP Nurse Practitioner Family
DX: K52.9 Noninfective gastroenteritis and colitis, unspecified (principal); Z20.822 Contact with and (suspected) exposure to COVID-19
CPT/HCPCS: 36415; 74177; 80053; 81003; 83690; 85025; 87635; 96360; 96361; 99284; C9803

== ENCOUNTER → 2024-01-01 10:50 | Outpatient (CLI) | payer OTHER, SELFPAY ==
[2020-11-19 06:17] VITALS: BMI 17.9
--- NOTE | 2024-01-01 10:51 | DI.MG.S_ITS ---
BILATERAL DIGITAL SCREENING MAMMOGRAM 3D/2D WITH CAD: 01/01/2024 CLINICAL: Routine screening. Comparison is made to exams dated: 11/06/2022 mammogram, 11/10/2021 mammogram - [facility], and 04/28/2019 mammogram - [facility]. The breasts are extremely dense, which lowers the sensitivity of mammography (category d />75% glandular tissue). Current study was also evaluated with a Computer Aided Detection (CAD) system. There are benign calcifications in both breasts. No significant masses, calcifications, or other findings are seen in either breast. There has been no significant interval change. IMPRESSION: BENIGN There is no mammographic evidence of malignancy. A 1 year screening mammogram is recommended. Based on Tyrer-Cuzick model (a risk assessment model), the patient's lifetime risk is 31.4% and her 10 year risk is 15.2%. If a patient has an elevated risk, a more comprehensive evaluation should be considered and/or a referral to a genetic counselor. The [employer], [employer], and NCCN Guidelines advise the consideration of Breast MRI as an adjunct to screening mammography in patients whose Lifetime risk to develop breast cancer is 20% or higher. This exam was interpreted at Station ID: [id number]. NOTE: For mammograms, a report in lay terms will be sent to the patient. Approximately 15% of breast malignancies will not be visualized mammographically. In the management of a palpable breast mass, a negative mammogram must not discourage biopsy of a clinically suspicious lesion. Electronically Signed By: Anita thorne/rosalinda:01/01/2024 11:52:33 copy to: ASHANTI MCFARLANE letter sent: Normal Exam ACR BI-RADS Category 2: Benign
== END ==
PROVIDERS: PCP Family Medicine; Referring Provider Family Medicine; Visit Provider Family Medicine
DX: Z12.31 Encounter for screening mammogram for malignant neoplasm of breast (principal); R92.343 Mammographic extreme density, bilateral breasts
CPT/HCPCS: 77063; 77067

== ENCOUNTER → 2025-01-19 07:37 | Outpatient (CLI) | payer MEDICARE, SELFPAY ==
[2020-11-19 06:17] VITALS: BMI 17.9
--- NOTE | 2025-01-19 07:41 | DI.MG.S_ITS ---
MM screening mammo BI: 01/19/2025. BI-RADS: 1 CLINICAL: 65-year old female for bilateral screening mammogram. Tyrer-Cuzick lifetime risk of 14.3%. Current reported family history of breast cancer: mother. PRIOR EXAMS: 01/01/2024, 04/28/2019, 10/29/2017, 11/13/2016. MAMMOGRAPHY TECHNIQUE: 2D and 3D (tomosynthesis) digital mammographic views obtained, with additional images as needed for full coverage. Current study was also evaluated with a Computer Aided Detection (CAD) system. DENSITY D. The breasts are extremely dense, which lowers the sensitivity of mammography. MAMMOGRAPHY FINDINGS Bilateral: No suspicious mass, asymmetry, microcalcification, or other abnormality seen. IMPRESSION: * No evidence of malignancy. RECOMMENDATIONS Bilateral * Annual screening mammography. OVERALL ASSESSMENT CATEGORY BI-RADS-1: Negative. The [employer] recommends annual screening mammography beginning at age 40 for women with average risk of breast cancer. ELECTRONICALLY SIGNED: Gloria Urban M.D. on 01/19/2025 at 05:21:00 PM PT Interpreting Station ID: [id number]
== END ==
LOC: MAMMO 07:40
PROVIDERS: PCP Physician Assistant; Referring Provider Physician Assistant; Visit Provider Physician Assistant
DX: Z12.31 Encounter for screening mammogram for malignant neoplasm of breast (principal); R92.343 Mammographic extreme density, bilateral breasts; Z80.3 Family history of malignant neoplasm of breast
CPT/HCPCS: 77063; 77067